=== PATIENT | male | born 1975 | race Caucasian/White ===

== ENCOUNTER 2019-05-09 15:36 | Emergency (ER) | payer MEDICAID ==
[~2019-05-09] VITALS: Ht 177.8 cm; Wt 80.0 kg
[~2019-05-09 15:36] MED LIST: LIPA1CAP18 PO; ONDA4TAB6 PO; PANT-47 PO
[2019-05-09 16:36] LABS: BASOPHILS % (AUTO) 0.5 % (0-1); EOSINOPHILS # (AUTO) 0.1 X10'3 (0-0.9); EOSINOPHILS % (AUTO) 1.5 % (0-6); HEMATOCRIT 47.6 % (42.0-52.0); HEMOGLOBIN 16.4 g/dl (14.0-17.9); LYMPHOCYTES % (AUTO) 14.9 % (21-51); MEAN CORPUSCULAR HEMOGLOBIN 33.5 PG (27.0-31.0); MEAN CORPUSCULAR HGB CONC 34.5 g/dL (33.0-36.5); MEAN CORPUSCULAR VOLUME 97.1 FL (78-98); MEAN PLATELET VOLUME 8.3 FL (7.4-10.4); MONOCYTES # (AUTO) 0.8 X10'3 (0-0.9); MONOCYTES % (AUTO) 11.3 % (2-12); NEUTROPHILS # (AUTO) 4.9 X10'3 (1.8-7.7); NEUTROPHILS % (AUTO) 71.8 % (42-75); PLATELET COUNT 167 X10'3 (140-440); RED CELL DISTRIBUTION WIDTH 14.1 % (11.5-14.5); WHITE BLOOD COUNT 6.8 X10'3 (4.5-11.0)
[2019-05-09 16:43] LABS: ALANINE AMINOTRANSFERASE 85 U/L (12-78); ALBUMIN 3.8 G/DL (3.4-5.0); ALBUMIN/GLOBULIN RATIO 0.9 (1.1-1.5); ALKALINE PHOSPHATASE 123 IU/L (46-116); AMYLASE 289 U/L (25-115); ANION GAP 8 (8-16); ASPARTATE AMINO TRANSFERASE 47 U/L (10-37); BILIRUBIN,TOTAL 0.6 MG/DL (0.1-1.0); BLOOD UREA NITROGEN 12 MG/DL (7-18); BUN/CREATININE RATIO 12.5 (5.4-32.0); CALCIUM 9.3 MG/DL (8.5-10.1); CHLORIDE 98 MMOL/L (99-107); CREATININE 0.96 MG/DL (0.60-1.10); GLUCOSE 202 MG/DL (70-104); LIPASE 589 U/L (73-393); SODIUM 135 MMOL/L (135-145); TOTAL CARBON DIOXIDE 28.8 MMOL/L (24-32); TOTAL PROTEIN 7.9 G/DL (6.4-8.2); eGFR 85 ML/MIN
[2019-05-09 16:47] LABS: CLARITY,URINE CLEAR (Clear); GLUCOSE, URINE 500 mg/dl (Neg); KETONES,URINE 40 mg/dl (Neg); LEUKOCYTE ESTERASE ,URINE NEGATIVE (Neg); NITRITES, URINE NEGATIVE (Neg); OCCULT BLOOD,URINE SMALL (Neg); PH,URINE 5.5 (4.8-8.0); PROTEIN,URINE 30 mg/dl (Neg)
[2019-05-09 16:51] LABS: COLOR,URINE DARK YELLOW (Yellow); UA COLLECTION TYPE CLN CATCH MIDSTREAM
[2019-05-09 17:16] LABS: RBC,URINE 0-2 /HPF (0-2); WBC,URINE 0-4 /HPF (0-4)
[2019-05-09 17:17] LABS: BACTERIA,URINE NONE SEEN /HPF (Neg); MUCUS STRANDS FEW /LPF (Neg); SQUAMOUS EPITHELIAL CELL,UR FEW /LPF (FEW)
[2019-05-09] MEDS ORDERED: famotidine/PF 10 mg/ml inj IV ONE (21:40)
[2019-05-09] MEDS ORDERED: ketorolac trometh. 30mg/ml inj. IV ONE (21:40)
[2019-05-09] MEDS ORDERED: ondansetron/PF 4mg/2ml inj IV ONE (21:40)
[2019-05-09] MEDS ORDERED: morphine 4 MG/ML inj SYRINge IV PRN (21:40)
[2019-05-09] MEDS ORDERED: normal saline 1000ML IV soln IVB ONE (21:40)
--- NOTE | 2019-05-09 21:41 | NUR ---
pt is resting quietly on gurney, has been evaluated by provider
[2019-05-09 22:10] VITALS: BP 165/98
[2019-05-09] MEDS ORDERED: HYDR-4383 PO (22:47)
[2019-05-09] MEDS ORDERED: NAPR-56 PO (22:47)
[2019-05-09] MEDS ORDERED: ONDA4TAB6 PO (22:47)
== END 2019-05-10 00:29 | disposition home or self-care (01) ==
LOC: ER 15:36
DX: K86.0 Alcohol-induced chronic pancreatitis (principal); F10.129 Alcohol abuse with intoxication, unspecified; Z79.899 Other long term (current) drug therapy; Y90.0 Blood alcohol level of less than 20 mg/100 ml
CPT/HCPCS: 36415; 80053; 81001; 82150; 83690; 85025; 96374; 96375; 99284; J1885; J2270; J2405; J3490; J7030

== ENCOUNTER 2019-10-01 20:32 | Emergency (ER) | payer MEDICAID ==
[~2019-10-01] VITALS: Ht 177.8 cm; Wt 74.0 kg
[~2019-10-01 20:32] MED LIST changes: +HYDR-4383 PO; +LIDOcaine 1% W/epiNEPHrine 1:200,000 10ml vial ONE
[2019-10-01 20:45] VITALS: BP 141/109
[2019-10-01] MEDS ORDERED: TETanus/Pertussis (Acell)/Diphther VAC/PF (Tdap-Adult) 0.5ml syringe IMVAC ONE (22:15)
== END 2019-10-01 22:55 | disposition home or self-care (01) ==
LOC: ER 20:32
DX: S61.011A Laceration without foreign body of right thumb without damage to nail, initial encounter (principal); Z79.899 Other long term (current) drug therapy; W27.4XXA Contact with kitchen utensil, initial encounter; Y93.89 Activity, other specified; Y92.098 Other place in other non-institutional residence as the place of occurrence of the external cause; Y99.9 Unspecified external cause status
CPT/HCPCS: 90471; 90715; 99283

== ENCOUNTER 2021-03-14 21:39 | Inpatient (IN) | payer MEDICAID ==
[~2021-03-14] VITALS: Ht 188 cm; Wt 68.0 kg
[~2021-03-14 21:39] MED LIST changes: -LIDOcaine 1% W/epiNEPHrine 1:200,000 10ml vial ONE
[2021-03-14] MEDS ORDERED: normal saline 1000ml 1,000 ML IV ONE (21:50)
[2021-03-14 22:46] LABS: CLARITY,URINE CLEAR (Clear); COLOR,URINE YELLOW (Yellow); GLUCOSE, URINE >=1000 mg/dl (Neg); KETONES,URINE >=80 mg/dl (Neg); LEUKOCYTE ESTERASE ,URINE NEGATIVE (Neg); NITRITES, URINE NEGATIVE (Neg); OCCULT BLOOD,URINE MODERATE (Neg); PROTEIN,URINE 100 mg/dl (Neg); UROBILINOGEN,URINE 0.2 E.U/dL (0.2-1.0)
[2021-03-14 22:46] LABS: BASOPHILS # (AUTO) 0.1 X10'3 (0-0.2); HEMOGLOBIN 14.9 g/dl (14.0-17.9); MEAN CORPUSCULAR HGB CONC 31.6 g/dL (33.0-36.5); MEAN PLATELET VOLUME 8.4 FL (7.4-10.4)
[2021-03-14 22:48] LABS: BASOPHILS % (AUTO) 0.6 % (0-1); EOSINOPHILS % (AUTO) 0 % (0-6); HEMATOCRIT 47.1 % (42.0-52.0); LYMPHOCYTES # (AUTO) 0.4 X10'3 (1.1-4.8); LYMPHOCYTES % (AUTO) 1.9 % (21-51); MEAN CORPUSCULAR HEMOGLOBIN 33.4 PG (27.0-31.0); MEAN CORPUSCULAR VOLUME 105.8 FL (78-98); MONOCYTES # (AUTO) 0.5 X10'3 (0-0.9); MONOCYTES % (AUTO) 2.1 % (2-12); NEUTROPHILS # (AUTO) 23.1 X10'3 (1.8-7.7); NEUTROPHILS % (AUTO) 95.4 % (42-75); PLATELET COUNT 183 X10'3 (140-440); RED BLOOD COUNT 4.46 X10'6 (4.70-6.10); WHITE BLOOD COUNT 24.2 X10'3 (4.5-11.0)
[2021-03-14 22:56] LABS: ALANINE AMINOTRANSFERASE 25 U/L (12-78); ALBUMIN 2.3 G/DL (3.4-5.0); ALBUMIN/GLOBULIN RATIO 0.5 (1.1-1.5); ALKALINE PHOSPHATASE 174 IU/L (46-116); ANION GAP 31 (8-16); ASPARTATE AMINO TRANSFERASE 35 U/L (10-37); BILIRUBIN,TOTAL 0.5 MG/DL (0.1-1.0); BLOOD UREA NITROGEN 43 MG/DL (7-18); BUN/CREATININE RATIO 18.8 (5.4-32.0); CALCIUM 10.8 MG/DL (8.5-10.1); CHLORIDE 90 MMOL/L (99-107); CREATININE 2.29 MG/DL (0.60-1.10); MAGNESIUM 2.5 MG/DL (1.5-2.4); SODIUM 127 MMOL/L (135-145); TOTAL PROTEIN 7.2 G/DL (6.4-8.2); eGFR 31 ML/MIN
[2021-03-14 22:57] LABS: UA COLLECTION TYPE CLN CATCH MIDSTREAM
[2021-03-14 22:59] LABS: BACTERIA,URINE NONE SEEN /HPF (Neg); RBC,URINE 0-2 /HPF (0-2); SQUAMOUS EPITHELIAL CELL,UR FEW /LPF (FEW); WBC,URINE NONE SEEN /HPF (0-4)
[2021-03-14 23:11] LABS: GLUCOSE 616 MG/DL (70-104); TOTAL CARBON DIOXIDE 6.3 MMOL/L (24-32)
[2021-03-14 23:20] LABS: ANISOCYTOSIS 1+; PLATELET ESTIMATE NORMAL; TOTAL CELLS COUNTED 100
[2021-03-14] MEDS ORDERED: normal saline 1000ML IV soln IV ONE (23:20)
[2021-03-14] MEDS ORDERED: CefTRIAXone 2gm/D5W 50ml BAG 50 ML IV ONE (23:20)
[2021-03-14] MEDS ORDERED: Insulin Reg/NS 100units/100mL 100 ML IV SCH (23:20)
[2021-03-14] MEDS ORDERED: insulin regular, human U-100 3ml vial - multi-dose IV PRN (23:20)
[2021-03-14] MEDS ORDERED: vancomycin/NS 1 GM ADD-VANTAGE 250 ML IV ONE (23:20)
[2021-03-14 23:28] LABS: ABG BASE EXCESS -30.1 mmol/L (-2.0-2.0); ABG HCO3 2.5 mmol/L (22.0-26.0); ABG OXYGEN SATURATION 97.2 % (94-97); ABG PCO2 (T) 14.3 mmHg (35.0-48.0); ABG PO2 (T) 95.6 mmHg (75.0-100.0); ALLEN'S TEST POSITIVE; FCOHb 0.8 % (0.0-3.9); FMetHb 0.2 % (0.0-1.5); FO2Hb 96.2 % (94-97); PATIENT TEMPERATURE 36.4; TOTAL HEMOGLOBIN 15.3 G/dl (14.0-18.0)
[2021-03-14] MEDS ORDERED: sodium bicarbonate (8.4%) 1 mEq/ml syringe IV ONE ×2 (23:30)
[2021-03-14] MEDS: normal saline 1000ml 1,000 ML IV SCH ×2 (23:50→23:58)
[2021-03-15] MEDS: sodium bicarbonate (8.4%) inj. 150 MEQ in dextrose 5%-water 1,000 ML IV SCH ×2 (00:55→11:00)
[2021-03-15 04:00] LABS: ALANINE AMINOTRANSFERASE 13 U/L (12-78); ALBUMIN 1.7 G/DL (3.4-5.0); ALBUMIN/GLOBULIN RATIO 0.4 (1.1-1.5); ALKALINE PHOSPHATASE 130 IU/L (46-116); ASPARTATE AMINO TRANSFERASE 32 U/L (10-37); BILIRUBIN,TOTAL 0.5 MG/DL (0.1-1.0); BLOOD UREA NITROGEN 48 MG/DL (7-18); BUN/CREATININE RATIO 22.1 (5.4-32.0); CALCIUM 9.1 MG/DL (8.5-10.1); CHLORIDE 97 MMOL/L (99-107); CREATININE 2.17 MG/DL (0.60-1.10); SODIUM 132 MMOL/L (135-145); TOTAL PROTEIN 5.8 G/DL (6.4-8.2); eGFR 33 ML/MIN
[2021-03-15 04:07] LABS: ANION GAP 30 (8-16)
[2021-03-15 04:12] LABS: GLUCOSE 486 MG/DL (70-104)
[2021-03-15 04:13] LABS: POTASSIUM 2.8 MMOL/L (3.5-5.1)
[2021-03-15 04:14] LABS: TOTAL CARBON DIOXIDE < 5 MMOL/L (24-32)
[2021-03-15] MEDS ORDERED: potassium Cl 10 mEq/100mL bag IV ONE (05:45)
[2021-03-15 06:47] LABS: ALANINE AMINOTRANSFERASE 19 U/L (12-78); ALBUMIN 1.7 G/DL (3.4-5.0); ALBUMIN/GLOBULIN RATIO 0.4 (1.1-1.5); ALKALINE PHOSPHATASE 127 IU/L (46-116); ANION GAP 25 (8-16); ASPARTATE AMINO TRANSFERASE 33 U/L (10-37); BILIRUBIN,TOTAL 0.4 MG/DL (0.1-1.0); BLOOD UREA NITROGEN 52 MG/DL (7-18); BUN/CREATININE RATIO 24.2 (5.4-32.0); CALCIUM 9.2 MG/DL (8.5-10.1); CHLORIDE 99 MMOL/L (99-107); CREATININE 2.15 MG/DL (0.60-1.10); GLUCOSE 402 MG/DL (70-104); SODIUM 134 MMOL/L (135-145); TOTAL PROTEIN 5.6 G/DL (6.4-8.2); eGFR 33 ML/MIN
[2021-03-15] MEDS ORDERED: dextrose 50%-water 50ml dispensing syringe IV PRN (07:05)
[2021-03-15] MEDS ORDERED: magnesium hydroxide 30ml (MOM) UD suspension PO PRN (07:05)
[2021-03-15] MEDS ORDERED: ipratropium/albuterol 3ml nebule NEB PRN (07:05)
[2021-03-15] MEDS ORDERED: acetaminophen 325mg tablet PO PRN (07:05)
[2021-03-15] MEDS ORDERED: potassium Cl 20 mEq SR tablet PO PRN ×4 (07:05→15:25)
[2021-03-15] MEDS: potassium CL 10mEq/100ml bag 100 ML IV PRN ×7 (07:28→18:29)
[2021-03-15] MEDS: famotidine 20mg tablet PO SCH ×2 (08:00→20:00)
[2021-03-15] MEDS: K and/or MAG REPLACEMENT MC SCH ×2 (08:01→20:00)
--- NOTE | 2021-03-15 08:16 | NUR ---
called art objects supervisor mirella regarding pt blood sugar continuing to be 300s and not dropping 50-70 per protocol. verbal order received to stop the currently bicarb drip and start normal saline at 100ml/hour. orders changed as received.
[2021-03-15] MEDS: normal saline 1000ml 1,000 ML IV SCH (08:30)
[2021-03-15 15:24] LABS: ALANINE AMINOTRANSFERASE 18 U/L (12-78); ALBUMIN 1.7 G/DL (3.4-5.0); ALBUMIN/GLOBULIN RATIO 0.5 (1.1-1.5); ALKALINE PHOSPHATASE 102 IU/L (46-116); ANION GAP 17 (8-16); ASPARTATE AMINO TRANSFERASE 28 U/L (10-37); BILIRUBIN,TOTAL 0.2 MG/DL (0.1-1.0); BLOOD UREA NITROGEN 65 MG/DL (7-18); CALCIUM 9.8 MG/DL (8.5-10.1); CHLORIDE 103 MMOL/L (99-107); GLUCOSE 213 MG/DL (70-104); SODIUM 136 MMOL/L (135-145); TOTAL CARBON DIOXIDE 15.8 MMOL/L (24-32); TOTAL PROTEIN 5.4 G/DL (6.4-8.2); eGFR 34 ML/MIN
[2021-03-15] MEDS ORDERED: sodium phosphate inj. 15 MMOL in dextrose 5%-water 250 ML IV PRN (15:25)
[2021-03-15] MEDS ORDERED: potassium Cl 40MEQ/1/2NS 520ml 520 ML IV PRN ×2 (15:25)
[2021-03-15] MEDS ORDERED: Neutra Phos packet PO PRN (15:25)
[2021-03-15 15:33] LABS: POTASSIUM 2.5 MMOL/L (3.5-5.1)
[2021-03-15] MEDS: Insulin Reg/NS 100units/100mL 100 ML IV SCH (15:55)
[2021-03-15 16:08] LABS: PHOSPHORUS 0.4 MG/DL (2.3-4.5)
[2021-03-15] MEDS: sodium phosphate inj. 30 MMOL in dextrose 5%-water 250 ML IV PRN (17:03)
[2021-03-15] MEDS: LIPASE/PROTEASE/AMYLASE 10,500 units CAPSULE.DR PO SCH (17:30)
[2021-03-15] MEDS: LIPASE/PROTEASE/AMYLASE 16,800 UNIT CAPSULE.DR PO SCH (17:30)
--- NOTE | 2021-03-15 18:27 | NUR ---
soft wrist restains reapplyed pt pulled iv out after several reminders to live lines alone
[2021-03-15 19:09] LABS: CLARITY,URINE SLIGHTLY CLOUDY (Clear); COLOR,URINE YELLOW (Yellow); GLUCOSE, URINE 100 mg/dl (Neg); KETONES,URINE NEGATIVE (Neg); LEUKOCYTE ESTERASE ,URINE NEGATIVE (Neg); NITRITES, URINE NEGATIVE (Neg); OCCULT BLOOD,URINE LARGE (Neg); PH,URINE 5.5 (4.8-8.0); PROTEIN,URINE 30 mg/dl (Neg); UROBILINOGEN,URINE 0.2 E.U/dL (0.2-1.0)
[2021-03-15 19:15] LABS: UA COLLECTION TYPE INDWELLING CATH
[2021-03-15 19:16] LABS: BACTERIA,URINE FEW /HPF (Neg); RBC,URINE 50-100 /HPF (0-2); SQUAMOUS EPITHELIAL CELL,UR FEW /LPF (FEW); WBC,URINE 0-4 /HPF (0-4)
[2021-03-15 19:55] LABS: UA EOSINOPHILS NO EOS /HPF
[2021-03-15 20:44] LABS: ALBUMIN 1.3 G/DL (3.4-5.0); ANION GAP 23 (8-16); BLOOD UREA NITROGEN 56 MG/DL (7-18); BUN/CREATININE RATIO 32.4 (5.4-32.0); CALCIUM 8.1 MG/DL (8.5-10.1); CHLORIDE 105 MMOL/L (99-107); CREATININE 1.73 MG/DL (0.60-1.10); GLUCOSE 290 MG/DL (70-104); SODIUM 141 MMOL/L (135-145); eGFR 43 ML/MIN
[2021-03-15] MEDS: insulin glargine (Lantus) pen - multi-dose SQ SCH (21:00)
[2021-03-15 21:03] LABS: PHOSPHORUS 15.2 MG/DL (2.3-4.5)
[2021-03-15 21:08] LABS: POTASSIUM 2.4 MMOL/L (3.5-5.1)
[2021-03-15 21:09] LABS: TOTAL CARBON DIOXIDE 13.4 MMOL/L (24-32)
[2021-03-16] VITALS (20 sets, daily range): BP systolic 118–171; BP diastolic 76–107
[2021-03-16] MEDS: enoxaparin 40mg/0.4ml syringe SQ SCH ×2 (00:24→20:50)
[2021-03-16] MEDS ORDERED: LORazepam 2 mg/ml vial IV ONE (00:45)
[2021-03-16] MEDS ORDERED: sodium bicarbonate (8.4%) inj. 100 MEQ in dextrose 5% water 500ml 500 ML IV PRN (00:55)
[2021-03-16] MEDS ORDERED: sodium bicarbonate (8.4%) inj. 50 MEQ in dextrose 5% water 500ml 250 ML IV PRN (00:55)
[2021-03-16] MEDS ORDERED: potassium CL 20mEq in D5-1/2NS 1,000 ML IV PRN (00:55)
[2021-03-16] MEDS: normal saline 1000ml 1,000 ML IV SCH ×4 (01:24→08:04)
[2021-03-16 02:45] LABS: ALBUMIN 1.7 G/DL (3.4-5.0); ANION GAP 18 (8-16); BLOOD UREA NITROGEN 66 MG/DL (7-18); BUN/CREATININE RATIO 31.6 (5.4-32.0); CALCIUM 9.8 MG/DL (8.5-10.1); CHLORIDE 107 MMOL/L (99-107); CREATININE 2.09 MG/DL (0.60-1.10); GLUCOSE 164 MG/DL (70-104); MAGNESIUM 1.7 MG/DL (1.5-2.4); SODIUM 139 MMOL/L (135-145); eGFR 35 ML/MIN
[2021-03-16 02:48] LABS: POTASSIUM 2.4 MMOL/L (3.5-5.1)
[2021-03-16 02:49] LABS: PHOSPHORUS 0.8 MG/DL (2.3-4.5); TOTAL CARBON DIOXIDE 14.3 MMOL/L (24-32)
[2021-03-16 03:30] LABS: BASOPHILS % (AUTO) 0.3 % (0-1); EOSINOPHILS % (AUTO) 0.2 % (0-6); HEMOGLOBIN 11.7 g/dl (14.0-17.9); LYMPHOCYTES # (AUTO) 0.2 X10'3 (1.1-4.8); LYMPHOCYTES % (AUTO) 3.7 % (21-51); MEAN CORPUSCULAR HEMOGLOBIN 33.2 PG (27.0-31.0); MEAN CORPUSCULAR HGB CONC 34.5 g/dL (33.0-36.5); MEAN CORPUSCULAR VOLUME 96.2 FL (78-98); MEAN PLATELET VOLUME 7.8 FL (7.4-10.4); MONOCYTES # (AUTO) 0.1 X10'3 (0-0.9); MONOCYTES % (AUTO) 2.5 % (2-12); NEUTROPHILS # (AUTO) 5.3 X10'3 (1.8-7.7); NEUTROPHILS % (AUTO) 93.3 % (42-75); PLATELET COUNT 89 X10'3 (140-440); RED BLOOD COUNT 3.53 X10'6 (4.70-6.10); RED CELL DISTRIBUTION WIDTH 13.4 % (11.5-14.5); WHITE BLOOD COUNT 5.7 X10'3 (4.5-11.0)
[2021-03-16 04:21] LABS: ANISOCYTOSIS 1+; BURR CELLS 1+; PLATELET ESTIMATE DECREASED; TOTAL CELLS COUNTED 100
[2021-03-16] MEDS: sodium phosphate inj. 30 MMOL in dextrose 5%-water 250 ML IV PRN (04:43)
[2021-03-16 05:01] LABS: ABG BASE EXCESS -11.5 mmol/L (-2.0-2.0); ABG HCO3 13.8 mmol/L (22.0-26.0); ABG OXYGEN SATURATION 94.2 % (94-97); ABG PCO2 (T) 29.3 mmHg (35.0-48.0); ABG PO2 (T) 63.1 mmHg (75.0-100.0); ALLEN'S TEST POSITIVE; FCOHb 0.1 % (0.0-3.9); FMetHb 0.2 % (0.0-1.5); FO2Hb 93.9 % (94-97); PATIENT TEMPERATURE 36.5; TOTAL HEMOGLOBIN 12.3 G/dl (14.0-18.0)
[2021-03-16] MEDS: potassium CL 10mEq/100ml bag 100 ML IV PRN ×7 (05:08→12:58)
--- NOTE | 2021-03-16 05:15 | NUR ---
received report from Neri EASLEY and was able to ask questions. Pt arrived to room 2040 and was transferred to our bed, placed on monitor, drips changed over to our infusion pumps. Pt restless, trying to pull at everything, is confused and needs frequent reorientation. Occasionally answers questions lucidly.
[2021-03-16] MEDS: ondansetron/PF 4mg/2ml inj IV PRN (05:49)
[2021-03-16] MEDS ORDERED: haloperidol lactate 5mg/ml inj IM PRN ×2 (05:55)
[2021-03-16] MEDS ORDERED: LORazepam 2 mg/ml vial IV PRN (05:55)
--- NOTE | 2021-03-16 06:47 | NUR ---
Problems reprioritized. Patient report given, questions answered & plan of care reviewed with Caitlin EASLEY.
[2021-03-16 07:05] LABS: TOTAL CARBON DIOXIDE 10.3 MMOL/L (24-32)
[2021-03-16] MEDS: LIPASE/PROTEASE/AMYLASE 16,800 UNIT CAPSULE.DR PO SCH ×3 (07:30→17:30)
[2021-03-16] MEDS: LIPASE/PROTEASE/AMYLASE 10,500 units CAPSULE.DR PO SCH ×3 (07:30→17:30)
[2021-03-16] MEDS: K and/or MAG REPLACEMENT MC SCH ×3 (08:00→20:00)
[2021-03-16] MEDS ORDERED: folic acid 1mg/0.2ml inj IV SCH (08:00)
[2021-03-16] MEDS: multivitamins, therapeutics tablet PO SCH (08:00)
[2021-03-16] MEDS: famotidine 20mg tablet PO SCH ×2 (08:00→20:48)
[2021-03-16] MEDS ORDERED: thiamine 100mg/ml 2ml inj. IV SCH (08:00)
[2021-03-16] MEDS ORDERED: thiamine inj. 100 MG in normal saline 100ml IV soln 100 ML IV SCH (08:00)
[2021-03-16] MEDS: nicotine 21mg patch - 24 hr TD SCH (08:04)
[2021-03-16 08:12] LABS: BASOPHILS % (AUTO) 0.3 % (0-1); EOSINOPHILS % (AUTO) 0.1 % (0-6); HEMATOCRIT 37.4 % (42.0-52.0); HEMOGLOBIN 12.6 g/dl (14.0-17.9); LYMPHOCYTES # (AUTO) 0.4 X10'3 (1.1-4.8); LYMPHOCYTES % (AUTO) 5.4 % (21-51); MEAN CORPUSCULAR HGB CONC 33.6 g/dL (33.0-36.5); MEAN CORPUSCULAR VOLUME 98.2 FL (78-98); MEAN PLATELET VOLUME 7.5 FL (7.4-10.4); MONOCYTES # (AUTO) 0.3 X10'3 (0-0.9); MONOCYTES % (AUTO) 4.5 % (2-12); NEUTROPHILS # (AUTO) 6.5 X10'3 (1.8-7.7); NEUTROPHILS % (AUTO) 89.7 % (42-75); PLATELET COUNT 97 X10'3 (140-440); RED BLOOD COUNT 3.81 X10'6 (4.70-6.10); RED CELL DISTRIBUTION WIDTH 13.4 % (11.5-14.5); WHITE BLOOD COUNT 7.2 X10'3 (4.5-11.0)
[2021-03-16] MEDS: LORazepam 2 mg/ml vial IV PRN ×4 (08:16→23:12)
[2021-03-16 09:26] LABS: ALBUMIN 1.7 G/DL (3.4-5.0); ANION GAP 17 (8-16); BLOOD UREA NITROGEN 63 MG/DL (7-18); BUN/CREATININE RATIO 30.1 (5.4-32.0); CALCIUM 9.9 MG/DL (8.5-10.1); CHLORIDE 108 MMOL/L (99-107); CREATININE 2.09 MG/DL (0.60-1.10); GLUCOSE 232 MG/DL (70-104); SODIUM 140 MMOL/L (135-145); eGFR 35 ML/MIN
[2021-03-16 09:31] LABS: POTASSIUM 2.6 MMOL/L (3.5-5.1); TOTAL CARBON DIOXIDE 14.9 MMOL/L (24-32)
[2021-03-16] MEDS: Insulin Reg/NS 100units/100mL 100 ML IV SCH (09:43)
[2021-03-16] MEDS ORDERED: normal saline 1000ml 1,000 ML IV SCH (11:10)
--- NOTE | 2021-03-16 11:12 | NUR ---
Initial: Pt admitted w/ sepsis secondary to RLL PNA, DKA, and new onset diabetes possibly from pancreatic insufficiency from recurrent pancreatitis from alcoholism per EMR. Pt noted to be lethargic and confused at times. Currently on CCHO diet pending PO intake, additionally receiving pancreatic enzymes. Noted A1C 12.1 though DM education not appropriate at this time given current mentation. Will likely need additional protein to meet increased needs though will wait for further PO trends for more appropriate recommendations. Will continue to monitor. Recs: 1. Continue CCHO diet as tolerated; pancreatic enzymes w/ meals 2. Monitor need for additional protein 3. Bowel care per rx 4. Weekly wts Addendum: 03/16/21 at [address] Amended: Links added.
[2021-03-16] MEDS: thiamine 100mg tablet PO SCH ×2 (13:00→21:49)
[2021-03-16 18:08] LABS: ALBUMIN 1.7 G/DL (3.4-5.0); ANION GAP 15 (8-16); BLOOD UREA NITROGEN 60 MG/DL (7-18); BUN/CREATININE RATIO 29.7 (5.4-32.0); CALCIUM 9.3 MG/DL (8.5-10.1); CHLORIDE 109 MMOL/L (99-107); CREATININE 2.02 MG/DL (0.60-1.10); GLUCOSE 136 MG/DL (70-104); MAGNESIUM 1.8 MG/DL (1.5-2.4); PHOSPHORUS 1.6 MG/DL (2.3-4.5); SODIUM 141 MMOL/L (135-145); TOTAL CARBON DIOXIDE 17.3 MMOL/L (24-32); eGFR 36 ML/MIN
[2021-03-16 18:19] LABS: POTASSIUM 2.7 MMOL/L (3.5-5.1)
[2021-03-16 19:32] LABS: ABG OXYGEN SATURATION 95.9 % (94-97); ABG PCO2 (T) 24.9 mmHg (35.0-48.0); ALLEN'S TEST POSITIVE; FCOHb 0.2 % (0.0-3.9); FMetHb 0.1 % (0.0-1.5); FO2Hb 95.6 % (94-97); PATIENT TEMPERATURE 36.2; TOTAL HEMOGLOBIN 12.4 G/dl (14.0-18.0)
[2021-03-16] MEDS ORDERED: potassium Cl 20 mEq SR tablet PO STA (20:18)
[2021-03-16] MEDS ORDERED: potassium Cl 10 mEq/100mL bag IV ONE ×2 (20:20)
[2021-03-16] MEDS ORDERED: hydrALAZINE 20mg/ml inj. IV ONE (20:20)
[2021-03-16] MEDS ORDERED: POTASSIUM BICARB 20meq eff tab 20 MEQ TABLET.EFF PO PRN ×2 (20:57)
[2021-03-16] MEDS: insulin glargine (Lantus) pen - multi-dose SQ SCH (21:48)
[2021-03-16 22:43] LABS: ALBUMIN 1.6 G/DL (3.4-5.0); ANION GAP 15 (8-16); BLOOD UREA NITROGEN 61 MG/DL (7-18); BUN/CREATININE RATIO 29.6 (5.4-32.0); CALCIUM 9.1 MG/DL (8.5-10.1); CHLORIDE 110 MMOL/L (99-107); CREATININE 2.06 MG/DL (0.60-1.10); GLUCOSE 164 MG/DL (70-104); MAGNESIUM 1.8 MG/DL (1.5-2.4); PHOSPHORUS 1.4 MG/DL (2.3-4.5); SODIUM 140 MMOL/L (135-145); TOTAL CARBON DIOXIDE 15.1 MMOL/L (24-32); eGFR 35 ML/MIN
[2021-03-16 22:46] LABS: POTASSIUM 2.7 MMOL/L (3.5-5.1)
[2021-03-17] VITALS (24 sets, daily range): BP systolic 88–166; BP diastolic 56–105
[2021-03-17] MEDS ORDERED: potassium Cl 10 mEq/100mL bag IV ONE ×8 (00:40)
[2021-03-17] MEDS ORDERED: hydrALAZINE 20mg/ml inj. IV ONE (00:40)
[2021-03-17] MEDS ORDERED: potassium phosphate inj 15 MMOL in normal saline 250ml IV soln 250 ML IV ONE (00:40)
[2021-03-17] MEDS: potassium CL 10mEq/100ml bag 100 ML IV PRN ×8 (01:06→10:43)
[2021-03-17] MEDS: dexmedetomidin/NS 400mcg/100ml 100 ML IV SCH ×2 (02:45→16:00)
[2021-03-17 03:28] LABS: CHLORIDE,URINE RANDOM 97 MEQ/L; SODIUM,URINE RANDOM 70 MEQ/L
[2021-03-17 06:15] LABS: BASOPHILS % (AUTO) 0.2 % (0-1); EOSINOPHILS % (AUTO) 0.1 % (0-6); HEMATOCRIT 33.9 % (42.0-52.0); HEMOGLOBIN 11.9 g/dl (14.0-17.9); LYMPHOCYTES # (AUTO) 0.5 X10'3 (1.1-4.8); LYMPHOCYTES % (AUTO) 7.2 % (21-51); MEAN CORPUSCULAR HEMOGLOBIN 33.4 PG (27.0-31.0); MEAN CORPUSCULAR VOLUME 95.3 FL (78-98); MEAN PLATELET VOLUME 8.3 FL (7.4-10.4); MONOCYTES # (AUTO) 0.3 X10'3 (0-0.9); MONOCYTES % (AUTO) 4.2 % (2-12); NEUTROPHILS # (AUTO) 6.8 X10'3 (1.8-7.7); NEUTROPHILS % (AUTO) 88.3 % (42-75); PLATELET COUNT 111 X10'3 (140-440); RED BLOOD COUNT 3.56 X10'6 (4.70-6.10); RED CELL DISTRIBUTION WIDTH 13.4 % (11.5-14.5); WHITE BLOOD COUNT 7.7 X10'3 (4.5-11.0)
[2021-03-17 06:18] LABS: ALBUMIN 1.6 G/DL (3.4-5.0); ANION GAP 16 (8-16); BLOOD UREA NITROGEN 53 MG/DL (7-18); BUN/CREATININE RATIO 25.6 (5.4-32.0); CALCIUM 8.8 MG/DL (8.5-10.1); CHLORIDE 111 MMOL/L (99-107); CREATININE 2.07 MG/DL (0.60-1.10); GLUCOSE 181 MG/DL (70-104); MAGNESIUM 1.8 MG/DL (1.5-2.4); PHOSPHORUS 1.9 MG/DL (2.3-4.5); SODIUM 143 MMOL/L (135-145); TOTAL CARBON DIOXIDE 16.5 MMOL/L (24-32); eGFR 35 ML/MIN
[2021-03-17 06:20] LABS: POTASSIUM 2.9 MMOL/L (3.5-5.1)
[2021-03-17] MEDS: LIPASE/PROTEASE/AMYLASE 10,500 units CAPSULE.DR PO SCH ×3 (07:30→17:06)
[2021-03-17] MEDS: LIPASE/PROTEASE/AMYLASE 16,800 UNIT CAPSULE.DR PO SCH ×3 (07:30→17:06)
[2021-03-17] MEDS: multivitamins, therapeutics tablet PO SCH (08:00)
[2021-03-17] MEDS: famotidine 20mg tablet PO SCH ×2 (08:00→20:41)
[2021-03-17] MEDS: folic acid 1mg tablet PO SCH (08:00)
[2021-03-17] MEDS: thiamine 100mg tablet PO SCH (08:00)
[2021-03-17] MEDS: K and/or MAG REPLACEMENT MC SCH ×2 (08:14→20:59)
[2021-03-17] MEDS: nicotine 21mg patch - 24 hr TD SCH (08:17)
[2021-03-17 11:53] LABS: ALBUMIN 1.6 G/DL (3.4-5.0); ANION GAP 17 (8-16); BLOOD UREA NITROGEN 51 MG/DL (7-18); BUN/CREATININE RATIO 24.8 (5.4-32.0); CALCIUM 8.8 MG/DL (8.5-10.1); CHLORIDE 111 MMOL/L (99-107); CREATININE 2.06 MG/DL (0.60-1.10); GLUCOSE 150 MG/DL (70-104); MAGNESIUM 1.7 MG/DL (1.5-2.4); PHOSPHORUS 2.3 MG/DL (2.3-4.5); POTASSIUM 3.4 MMOL/L (3.5-5.1); SODIUM 142 MMOL/L (135-145); eGFR 35 ML/MIN
[2021-03-17 11:55] LABS: TOTAL CARBON DIOXIDE 14.2 MMOL/L (24-32)
[2021-03-17] MEDS: POTASSIUM BICARB 20meq eff tab 20 MEQ TABLET.EFF PO SCH ×2 (14:00→20:41)
[2021-03-17] MEDS: ondansetron/PF 4mg/2ml inj IV PRN (16:18)
[2021-03-17 16:28] LABS: ALBUMIN 1.7 G/DL (3.4-5.0); ANION GAP 19 (8-16); BLOOD UREA NITROGEN 54 MG/DL (7-18); BUN/CREATININE RATIO 24.9 (5.4-32.0); CALCIUM 8.9 MG/DL (8.5-10.1); CHLORIDE 109 MMOL/L (99-107); CREATININE 2.17 MG/DL (0.60-1.10); GLUCOSE 244 MG/DL (70-104); MAGNESIUM 1.7 MG/DL (1.5-2.4); PHOSPHORUS 2.8 MG/DL (2.3-4.5); POTASSIUM 3.5 MMOL/L (3.5-5.1); SODIUM 140 MMOL/L (135-145); eGFR 33 ML/MIN
[2021-03-17 16:31] LABS: TOTAL CARBON DIOXIDE 12.2 MMOL/L (24-32)
[2021-03-17] MEDS ORDERED: dextrose 50%-water 50ml dispensing syringe IV PRN ×2 (17:55)
[2021-03-17] MEDS ORDERED: dextrose ORAL solution 15 GM/59 ML bottle PO PRN ×2 (17:55)
[2021-03-17] MEDS ORDERED: glucagon, human recombinant 1mg kit SUBCUT PRN (17:55)
[2021-03-17] MEDS: insulin Lispro (HumaLOG) vial - multi-dose SQ SCH ×2 (18:32→20:58)
[2021-03-17] MEDS: enoxaparin 40mg/0.4ml syringe SQ SCH (20:42)
[2021-03-17] MEDS: insulin glargine (Lantus) pen - multi-dose SQ SCH (20:57)
[2021-03-17 22:39] LABS: ALBUMIN 1.6 G/DL (3.4-5.0); ANION GAP 16 (8-16); BLOOD UREA NITROGEN 54 MG/DL (7-18); BUN/CREATININE RATIO 23.5 (5.4-32.0); CHLORIDE 111 MMOL/L (99-107); GLUCOSE 284 MG/DL (70-104); MAGNESIUM 1.9 MG/DL (1.5-2.4); PHOSPHORUS 2.3 MG/DL (2.3-4.5); POTASSIUM 3.4 MMOL/L (3.5-5.1); SODIUM 143 MMOL/L (135-145); TOTAL CARBON DIOXIDE 16.3 MMOL/L (24-32); eGFR 31 ML/MIN
[2021-03-18] VITALS (17 sets, daily range): BP systolic 124–163; BP diastolic 75–97
[2021-03-18] MEDS ORDERED: LORazepam 2 mg/ml vial IV PRN (05:55)
[2021-03-18 06:16] LABS: BASOPHILS % (AUTO) 0.2 % (0-1); EOSINOPHILS % (AUTO) 0.1 % (0-6); HEMATOCRIT 32.1 % (42.0-52.0); HEMOGLOBIN 11.4 g/dl (14.0-17.9); LYMPHOCYTES # (AUTO) 0.6 X10'3 (1.1-4.8); LYMPHOCYTES % (AUTO) 7.7 % (21-51); MEAN CORPUSCULAR HEMOGLOBIN 33.3 PG (27.0-31.0); MEAN CORPUSCULAR HGB CONC 35.4 g/dL (33.0-36.5); MEAN PLATELET VOLUME 7.9 FL (7.4-10.4); MONOCYTES # (AUTO) 0.6 X10'3 (0-0.9); MONOCYTES % (AUTO) 8.2 % (2-12); NEUTROPHILS # (AUTO) 6.3 X10'3 (1.8-7.7); NEUTROPHILS % (AUTO) 83.8 % (42-75); PLATELET COUNT 125 X10'3 (140-440); RED BLOOD COUNT 3.42 X10'6 (4.70-6.10); RED CELL DISTRIBUTION WIDTH 13.4 % (11.5-14.5); WHITE BLOOD COUNT 7.5 X10'3 (4.5-11.0)
[2021-03-18 06:19] LABS: ALBUMIN 1.6 G/DL (3.4-5.0); ANION GAP 13 (8-16); BLOOD UREA NITROGEN 50 MG/DL (7-18); BUN/CREATININE RATIO 22.7 (5.4-32.0); CALCIUM 9.3 MG/DL (8.5-10.1); CHLORIDE 114 MMOL/L (99-107); GLUCOSE 245 MG/DL (70-104); MAGNESIUM 1.9 MG/DL (1.5-2.4); PHOSPHORUS 2.1 MG/DL (2.3-4.5); POTASSIUM 3.3 MMOL/L (3.5-5.1); SODIUM 146 MMOL/L (135-145); TOTAL CARBON DIOXIDE 18.7 MMOL/L (24-32); eGFR 33 ML/MIN
[2021-03-18] MEDS: nicotine 21mg patch - 24 hr TD SCH (07:49)
[2021-03-18] MEDS: LIPASE/PROTEASE/AMYLASE 16,800 UNIT CAPSULE.DR PO SCH ×3 (07:50→18:00)
[2021-03-18] MEDS: LIPASE/PROTEASE/AMYLASE 10,500 units CAPSULE.DR PO SCH ×3 (07:50→18:00)
[2021-03-18] MEDS: POTASSIUM BICARB 20meq eff tab 20 MEQ TABLET.EFF PO SCH ×2 (07:52→19:30)
[2021-03-18] MEDS: thiamine 100mg tablet PO SCH (07:52)
[2021-03-18] MEDS: folic acid 1mg tablet PO SCH (07:52)
[2021-03-18] MEDS: famotidine 20mg tablet PO SCH ×2 (07:53→19:30)
[2021-03-18] MEDS: multivitamins, therapeutics tablet PO SCH (07:53)
[2021-03-18] MEDS: K and/or MAG REPLACEMENT MC SCH ×2 (07:54→19:22)
[2021-03-18] MEDS ORDERED: thiamine inj. 100 MG in normal saline 100ml IV soln 100 ML IV SCH (08:00)
[2021-03-18 10:51] LABS: ALBUMIN 1.6 G/DL (3.4-5.0); ANION GAP 11 (8-16); BLOOD UREA NITROGEN 48 MG/DL (7-18); BUN/CREATININE RATIO 21.9 (5.4-32.0); CHLORIDE 112 MMOL/L (99-107); CREATININE 2.19 MG/DL (0.60-1.10); GLUCOSE 245 MG/DL (70-104); PHOSPHORUS 1.8 MG/DL (2.3-4.5); POTASSIUM 3.1 MMOL/L (3.5-5.1); SODIUM 145 MMOL/L (135-145); TOTAL CARBON DIOXIDE 21.7 MMOL/L (24-32); eGFR 33 ML/MIN
[2021-03-18] MEDS: insulin Lispro (HumaLOG) vial - multi-dose SQ SCH ×3 (13:07→22:59)
[2021-03-18] MEDS: lactose-reduced food (Ensure Enlive) - 237ml bottle PO SCH ×2 (13:08→18:01)
--- NOTE | 2021-03-18 16:00 | NUR ---
pt arrived to floor from icu. no s/s of pain or distress. oriented to room and discussed plan of care and medications. vss. spouse at bedside. repositioned for comfort. will monitor.
--- NOTE | 2021-03-18 16:05 | NUR ---
Patient in room ICU 2040. I have received report from KAUSHAL Britton and had the opportunity to ask questions and assume patient care.
[2021-03-18 16:15] LABS: ALBUMIN 1.7 G/DL (3.4-5.0); ANION GAP 12 (8-16); BLOOD UREA NITROGEN 48 MG/DL (7-18); BUN/CREATININE RATIO 23.1 (5.4-32.0); CALCIUM 9.3 MG/DL (8.5-10.1); CHLORIDE 112 MMOL/L (99-107); CREATININE 2.08 MG/DL (0.60-1.10); GLUCOSE 265 MG/DL (70-104); PHOSPHORUS 1.7 MG/DL (2.3-4.5); SODIUM 146 MMOL/L (135-145); TOTAL CARBON DIOXIDE 21.6 MMOL/L (24-32); eGFR 35 ML/MIN
[2021-03-18 16:21] LABS: POTASSIUM 2.9 MMOL/L (3.5-5.1)
--- NOTE | 2021-03-18 18:15 | NUR ---
Patient in room MED 314. I have received report from KAUSHAL Phillips and had the opportunity to ask questions and assume patient care. Spouse at bedside assist pt with dinner. pt not eating much is drinking ensure Addendum: 03/18/21 at 1838 by Uri Sue RN Amended: Links added.
[2021-03-18] MEDS: heparin, porcine 5000 units/ml vial SQ SCH (19:29)
--- NOTE | 2021-03-18 22:00 | NUR ---
PT DECLINED ORAL CARE, TAVARES CALDWELL., Addendum: 03/19/21 at 0259 by Uri Sue RN Amended: Links added.
--- NOTE | 2021-03-18 22:43 | NUR ---
LABS DRAWN Addendum: 03/18/21 at 2244 by Uri Sue RN Amended: Links added.
[2021-03-18] MEDS: insulin glargine (Lantus) pen - multi-dose SQ SCH (22:59)
[2021-03-18 23:25] LABS: ALBUMIN 1.8 G/DL (3.4-5.0); ANION GAP 12 (8-16); BLOOD UREA NITROGEN 47 MG/DL (7-18); BUN/CREATININE RATIO 22.3 (5.4-32.0); CALCIUM 9.3 MG/DL (8.5-10.1); CHLORIDE 112 MMOL/L (99-107); CREATININE 2.11 MG/DL (0.60-1.10); GLUCOSE 232 MG/DL (70-104); MAGNESIUM 2.1 MG/DL (1.5-2.4); PHOSPHORUS 1.4 MG/DL (2.3-4.5); SODIUM 149 MMOL/L (135-145); eGFR 34 ML/MIN
[2021-03-18 23:38] LABS: POTASSIUM 2.9 MMOL/L (3.5-5.1)
[2021-03-19 02:00] VITALS: BP 136/86
--- NOTE | 2021-03-19 02:00 | NUR ---
pT IS TURNING SELF, DECLINES TO TURN WITH NURSING. ENC FREQ POSITION CHANGE. PT WEAK, BUT IS ABLE TO MOVE IN BED,. Addendum: 03/19/21 at 0238 by Uri Sue RN Amended: Links added.
[2021-03-19] MEDS: potassium CL 10mEq/100ml bag 100 ML IV PRN ×5 (02:04→06:13)
--- NOTE | 2021-03-19 02:38 | NUR ---
OCC AWAKE, SL ANXIOUS, ATIVAN OFFERED, PT REFUSED. FALLS BACK TO SLEEP. Addendum: 03/19/21 at 0239 by Uri Sue RN Amended: Links added.
[2021-03-19 06:10] VITALS: BP 131/85
--- NOTE | 2021-03-19 06:33 | NUR ---
Problems reprioritized. Patient report given, questions answered & plan of care reviewed with KAUSHAL Aguirre. Addendum: 03/19/21 at 0633 by Uri Sue RN Amended: Links added.
[2021-03-19 07:12] LABS: BASOPHILS % (AUTO) 0.2 % (0-1); EOSINOPHILS % (AUTO) 0.2 % (0-6); HEMATOCRIT 31.8 % (42.0-52.0); HEMOGLOBIN 11.1 g/dl (14.0-17.9); LYMPHOCYTES # (AUTO) 0.8 X10'3 (1.1-4.8); LYMPHOCYTES % (AUTO) 9.2 % (21-51); MEAN CORPUSCULAR HEMOGLOBIN 32.7 PG (27.0-31.0); MEAN CORPUSCULAR HGB CONC 34.8 g/dL (33.0-36.5); MEAN CORPUSCULAR VOLUME 93.8 FL (78-98); MEAN PLATELET VOLUME 8.4 FL (7.4-10.4); MONOCYTES % (AUTO) 11.8 % (2-12); NEUTROPHILS # (AUTO) 6.5 X10'3 (1.8-7.7); NEUTROPHILS % (AUTO) 78.6 % (42-75); PLATELET COUNT 167 X10'3 (140-440); RED BLOOD COUNT 3.39 X10'6 (4.70-6.10); RED CELL DISTRIBUTION WIDTH 13.6 % (11.5-14.5); WHITE BLOOD COUNT 8.3 X10'3 (4.5-11.0)
[2021-03-19 07:29] LABS: ALBUMIN 1.6 G/DL (3.4-5.0); ANION GAP 14 (8-16); BLOOD UREA NITROGEN 43 MG/DL (7-18); BUN/CREATININE RATIO 21.6 (5.4-32.0); CALCIUM 8.6 MG/DL (8.5-10.1); CHLORIDE 109 MMOL/L (99-107); CREATININE 1.99 MG/DL (0.60-1.10); GLUCOSE 288 MG/DL (70-104); MAGNESIUM 1.9 MG/DL (1.5-2.4); POTASSIUM 3.7 MMOL/L (3.5-5.1); SODIUM 145 MMOL/L (135-145); TOTAL CARBON DIOXIDE 22.3 MMOL/L (24-32); eGFR 37 ML/MIN
[2021-03-19] MEDS: LIPASE/PROTEASE/AMYLASE 10,500 units CAPSULE.DR PO SCH ×3 (08:33→17:44)
[2021-03-19] MEDS: POTASSIUM BICARB 20meq eff tab 20 MEQ TABLET.EFF PO SCH ×2 (08:34→19:24)
[2021-03-19] MEDS: LIPASE/PROTEASE/AMYLASE 16,800 UNIT CAPSULE.DR PO SCH ×3 (08:34→17:44)
[2021-03-19] MEDS: folic acid 1mg tablet PO SCH (08:34)
[2021-03-19] MEDS: heparin, porcine 5000 units/ml vial SQ SCH ×2 (08:34→19:26)
[2021-03-19] MEDS: multivitamins, therapeutics tablet PO SCH (08:34)
[2021-03-19] MEDS: famotidine 20mg tablet PO SCH ×2 (08:34→19:25)
[2021-03-19] MEDS: thiamine 100mg tablet PO SCH (08:35)
[2021-03-19] MEDS: K and/or MAG REPLACEMENT MC SCH ×2 (08:35→20:00)
[2021-03-19] MEDS: nicotine 21mg patch - 24 hr TD SCH (08:35)
[2021-03-19] MEDS: lactose-reduced food (Ensure Enlive) - 237ml bottle PO SCH ×3 (08:35→18:46)
[2021-03-19] MEDS: insulin Lispro (HumaLOG) vial - multi-dose SQ SCH ×3 (08:46→19:33)
[2021-03-19 10:00] VITALS: BP 88/48
--- NOTE | 2021-03-19 11:38 | NUR ---
Reassessment: Pt now on SB6/CCHO diet per SILVER WRAPPER recs though pt continues w/ mostly 0% intake of meals, only consumes the milk per documentation, needs feeder. Ensure Enlive TID has been ordered and pt consumed 25% of first one now up to 100% of third ONS partially meeting needs. Per physial assessment pt A&O x 3 and confused and RN reports pt also lethargic. IF PO does not improve pt may need supplemental TF to meet nutrient needs. DM education not appropriate at this time, will f/u when pt more appropriate. LBM 1/2. Will continue to monitor. Recs: 1. Continue CCHO/SB6 diet as tolerated per SILVER WR[employer]PER recs; pancreatic enzymes w/ meals 2. Ensure Enlive TID 3. Bowel care per rx 4. Weekly wts 5. If pt continues to refuse meals, consider NGTF to meet nutritional needs Addendum: 03/19/21 at [address] Amended: Links added.
[2021-03-19 14:00] VITALS: BP 121/85
[2021-03-19 18:25] VITALS: BP 132/86
[2021-03-19] MEDS: insulin glargine (Lantus) pen - multi-dose SQ SCH (21:00)
[2021-03-19 22:21] VITALS: BP 127/87
[2021-03-20 02:40] VITALS: BP 123/81
--- NOTE | 2021-03-20 04:11 | NUR ---
HELD patients 2100 lantus as hs blood sugar was 80. patient did not consume much of dinner and received 36 units of humalog due to blood sugar of 386 before dinner.
[2021-03-20 04:54] LABS: BASOPHILS % (AUTO) 0.1 % (0-1); EOSINOPHILS % (AUTO) 0.5 % (0-6); HEMATOCRIT 34.1 % (42.0-52.0); HEMOGLOBIN 11.7 g/dl (14.0-17.9); LYMPHOCYTES # (AUTO) 0.9 X10'3 (1.1-4.8); LYMPHOCYTES % (AUTO) 11.3 % (21-51); MEAN CORPUSCULAR HEMOGLOBIN 32.7 PG (27.0-31.0); MEAN CORPUSCULAR HGB CONC 34.3 g/dL (33.0-36.5); MEAN CORPUSCULAR VOLUME 95.3 FL (78-98); MEAN PLATELET VOLUME 8.2 FL (7.4-10.4); MONOCYTES # (AUTO) 0.9 X10'3 (0-0.9); MONOCYTES % (AUTO) 11.5 % (2-12); NEUTROPHILS % (AUTO) 76.6 % (42-75); PLATELET COUNT 220 X10'3 (140-440); RED BLOOD COUNT 3.59 X10'6 (4.70-6.10); RED CELL DISTRIBUTION WIDTH 13.4 % (11.5-14.5); WHITE BLOOD COUNT 7.9 X10'3 (4.5-11.0)
[2021-03-20 05:07] LABS: ALBUMIN 1.6 G/DL (3.4-5.0); ANION GAP 9 (8-16); BLOOD UREA NITROGEN 42 MG/DL (7-18); BUN/CREATININE RATIO 27.6 (5.4-32.0); CALCIUM 8.6 MG/DL (8.5-10.1); CHLORIDE 103 MMOL/L (99-107); CREATININE 1.52 MG/DL (0.60-1.10); GLUCOSE 150 MG/DL (70-104); MAGNESIUM 1.9 MG/DL (1.5-2.4); PHOSPHORUS 4.3 MG/DL (2.3-4.5); POTASSIUM 3.5 MMOL/L (3.5-5.1); SODIUM 138 MMOL/L (135-145); TOTAL CARBON DIOXIDE 25.7 MMOL/L (24-32); eGFR 50 ML/MIN
[2021-03-20] MEDS ORDERED: LORazepam 2 mg/ml vial IV PRN (05:55)
[2021-03-20 06:00] VITALS: BP 134/86
--- NOTE | 2021-03-20 06:35 | NUR ---
Problems reprioritized. Patient report given, questions answered & plan of care reviewed with Isha EASLEY.
[2021-03-20] MEDS: POTASSIUM BICARB 20meq eff tab 20 MEQ TABLET.EFF PO SCH (07:27)
[2021-03-20] MEDS: famotidine 20mg tablet PO SCH (07:28)
[2021-03-20] MEDS: acetaminophen 325mg tablet PO PRN ×2 (07:28→15:17)
[2021-03-20] MEDS: thiamine 100mg tablet PO SCH (07:28)
[2021-03-20] MEDS: folic acid 1mg tablet PO SCH (07:29)
[2021-03-20] MEDS: multivitamins, therapeutics tablet PO SCH (07:29)
[2021-03-20] MEDS: LIPASE/PROTEASE/AMYLASE 10,500 units CAPSULE.DR PO SCH ×3 (07:30→17:01)
[2021-03-20] MEDS: LIPASE/PROTEASE/AMYLASE 16,800 UNIT CAPSULE.DR PO SCH ×3 (07:30→17:01)
[2021-03-20] MEDS: heparin, porcine 5000 units/ml vial SQ SCH (07:30)
[2021-03-20] MEDS: nicotine 21mg patch - 24 hr TD SCH ×2 (07:42→08:00)
[2021-03-20] MEDS: lactose-reduced food (Ensure Enlive) - 237ml bottle PO SCH ×2 (08:00→13:00)
[2021-03-20] MEDS: K and/or MAG REPLACEMENT MC SCH (08:00)
[2021-03-20] MEDS: insulin Lispro (HumaLOG) vial - multi-dose SQ SCH ×2 (09:28→15:09)
[2021-03-20 10:00] VITALS: BP 123/84
[2021-03-20] MEDS: benzonatate 100mg capsule PO SCH ×2 (10:57→15:05)
--- NOTE | 2021-03-20 12:55 | NUR ---
DM Consult: Pt seen by RD for written/verbal DM ed w/ RD contact information provided. RD reviewed carb sources, types of carbs, carb portion sizing, protein food sources, balanced meals, symptoms of low/high Glu, and appropriate snack options. Pt reports does not follow fad diets such as keto, etc. RD encouraged pt to contact dietitian's office if further questions/concerns. Addendum: 03/20/21 at [address] Amended: Links added.
[2021-03-20] MEDS ORDERED: NICO-687 TD (13:18)
[2021-03-20] MEDS ORDERED: INSU300I3 SQ (13:18)
[2021-03-20] MEDS ORDERED: INSU100V11 SQ (13:18)
[2021-03-20 15:00] VITALS: BP 142/89
--- NOTE | 2021-03-20 15:20 | NUR ---
PAGER ID: [phone] MESSAGE: [phone]. Patient is complaining of sharp/tight chest pain aside from rib pain. Isha EASLEY [id number]
--- NOTE | 2021-03-20 16:29 | NUR ---
PAGER ID: [phone] MESSAGE: [phone]. Patient's EKG is in patient folder. Shows NSR. Isha EASLEY [id number]
--- NOTE | 2021-03-20 17:47 | NUR ---
Patient ambulated to restroom. Chin removed per Dr. Piña. Patient has discharge orders, but Dr. Piña wants to make sure patient's insulin is covered by his insurance. I spoke to Sushila over at [facility] pharmacy listed in patient's list, they said they will get back to me after I faxed them the complete list of patients medication/supplies orders. I have not heard back from them. Patient is aware that we are just waiting on the pharmacy for discharge.
--- NOTE | 2021-03-20 18:30 | NUR ---
Problems reprioritized. Patient report given, questions answered & plan of care reviewed with Lashawn RN.
--- NOTE | 2021-03-20 18:30 | NUR ---
IV removed. Pt d/c'd home with
== END 2021-03-20 20:00 | disposition home or self-care (01) | DRG 720 ==
LOC: ER 21:39 → ED HOLD 03-15 07:11 → ICU 2S 03-16 04:20 → MED 3N 03-18 16:30
PROVIDERS: ADMIT Internal Medicine Critical Care Medicine; ATTEND Internal Medicine Critical Care Medicine
DX: A41.9 Sepsis, unspecified organism (principal); N17.0 Acute kidney failure with tubular necrosis; E11.10 Type 2 diabetes mellitus with ketoacidosis without coma; K85.20 Alcohol induced acute pancreatitis without necrosis or infection; E44.0 Moderate protein-calorie malnutrition; J18.9 Pneumonia, unspecified organism; Z20.822 Contact with and (suspected) exposure to COVID-19; E87.4 Mixed disorder of acid-base balance; E83.39 Other disorders of phosphorus metabolism; E87.1 Hypo-osmolality and hyponatremia; E11.22 Type 2 diabetes mellitus with diabetic chronic kidney disease; N18.30 Chronic kidney disease, stage 3 unspecified; E86.0 Dehydration; R65.20 Severe sepsis without septic shock; E83.52 Hypercalcemia; E87.6 Hypokalemia; F17.210 Nicotine dependence, cigarettes, uncomplicated; Z79.4 Long term (current) use of insulin; Z68.1 Body mass index [BMI] 19.9 or less, adult; Z71.6 Tobacco abuse counseling
CPT/HCPCS: 36415; 36600; 71045; 76770; 80048; 80053; 81001; 82436; 82570; 82803; 82948; 83036; 83605; 83735; 84100; 84132; 84133; 84145; 84300; 84484; 85007; 85018; 85025; 87040; 87081; 87207; 87635; 92508; 92616; 93005; 94760; 97116; 97161; 97530; 99285; C9803; G0378; J0360; J0696; J1644; J1650; J1815; J2060; J2405; J3370; J3411; J3480; J3490; J7030; J7060; J7070

== ENCOUNTER 2021-11-09 21:03 | Emergency (ER) | payer MEDICAID ==
[~2021-11-09] VITALS: Ht 177.8 cm; Wt 77.2 kg
[~2021-11-09 21:03] MED LIST changes: -HYDR-4383 PO; +INSU100V11 SQ; +INSU300I3 SQ; +NICO-687 TD; -ONDA4TAB6 PO; -PANT-47 PO
--- NOTE | 2021-11-09 21:22 | NUR ---
DR GAY AWARE OF PT. HE OKAY'D HEAD AND FACIAL CT.
--- NOTE | 2021-11-09 21:24 | NUR ---
CALLED RUTH. CASE NUMBER IS [id number]
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
[2021-11-09] MEDS ORDERED: LIDOCAINE 1%/EPI 1:100,000 inj. 10 ML multi-dose vial SQ ONE (23:45)
[2021-11-09] MEDS ORDERED: LIDOcaine 1% W/epiNEPHrine 1:100,000 20ml vial SQ ONE (23:55)
[2021-11-10] MEDS ORDERED: CEPH-585 PO (00:53)
[2021-11-10] MEDS ORDERED: acetaminophen 325mg tablet PO ONE (01:00)
[2021-11-10 01:15] VITALS: BP 149/93
== END 2021-11-10 01:18 | disposition home or self-care (01) ==
LOC: ER 21:05
DX: S01.112A Laceration without foreign body of left eyelid and periocular area, initial encounter (principal); Z87.19 Personal history of other diseases of the digestive system; Z79.2 Long term (current) use of antibiotics; Z79.84 Long term (current) use of oral hypoglycemic drugs; W19.XXXA Unspecified fall, initial encounter; Y93.89 Activity, other specified; Y92.89 Other specified places as the place of occurrence of the external cause; Y99.8 Other external cause status
CPT/HCPCS: 12014; 70450; 70486; 82948; 99285; J7030; A6449